=== PATIENT | female | born 1955 | race Caucasian/White ===

== ENCOUNTER 2017-05-18 12:07 | Emergency (ER) | payer BC ==
[2017-05-18 12:52] VITALS: BP 123/69
--- NOTE | 2017-05-18 13:18 | RAD ---
Indication: Dull pain RIGHT third proximal interphalangeal joint with associated swelling. No preceding injury. Comparison: June 23, 2010 radiographs Technique: AP, lateral, and oblique views RIGHT third finger. Report: Negative for fracture or malalignment. Negative for osteophytosis or joint space narrowing. No definitive osseous erosions. Suggestion of polyarticular mild periarticular osteopenia. Minimal periarticular soft tissue swelling at the level of the proximal interphalangeal joint. IMPRESSION: Consider potential early inflammatory arthropathy. Correlate with clinical assessment.
--- NOTE | 2017-05-18 13:44 | UC ---
Hand/Wrist HPI - HPI Summary HPI Summary: Patient presents with three-day history of right third finger pain with movement. No pain at rest. She is a very active healthy individual and noticed the discomfort after cross country skiing over the weekend. She does have a history of osteopenia but no arthritic symptoms in her hands. Denies any trauma. She has full range of motion in her finger but feels weak. 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 - History Of Current Complaint Chief Complaint: UCUpperExtremity Stated Complaint: FINGER PAIN Time Seen by Provider: 05/18/17 12:53 Hx Obtained From: Patient Onset/Duration: Gradual Onset, Lasting Days, Still Present Severity Initially: Moderate Severity Currently: None Pain Intensity: 0 - PAIN IS WITH MOVEMENT Pain Scale Used: 0-10 Numeric Character Of Pain: Sharp Aggravating Factor(s): Movement Alleviating Factor(s): Rest Associated Signs And Symptoms: Positive: Weakness. Negative: Swelling, Redness , Numbness/Tingling Related History: Dominant Hand Right - Allergies/Home Medications Allergies/Adverse Reactions: Allergies Allergy/AdvReac Type Severity Reaction Status Date / Time No Known Allergies Allergy Verified 05/18/17 12:44 PMH/Surg Hx/FS Hx/Imm Hx Previously Healthy: Yes - Surgical History Surgical History: None - Family History Known Family History: Positive: Cardiac Disease, Hypertension Family History: LUNG CANCER - Social History Alcohol Use: Daily Alcohol Amount: 1 drink/ day Substance Use Type: None Smoking Status (MU): Never Smoked Tobacco Review of Systems Constitutional: Negative Skin: Negative Respiratory: Negative Cardiovascular: Negative Gastrointestinal: Negative Musculoskeletal: Arthralgia All Other Systems Reviewed And Are Negative: Yes Physical Exam Triage Information Reviewed: Yes Appearance: Well-Appearing, No Pain Distress, Well-Nourished Vital Signs: Initial Vital Signs Temp 98.4 F 05/18/17 12:45 Pulse 58 05/18/17 12:45 Resp 16 05/18/17 12:45 BP 123/69 05/18/17 12:45 Pulse Ox 100 05/18/17 12:45 Vital Signs Reviewed: Yes Eyes: Positive: Conjunctiva Clear ENT: Positive: Hearing grossly normal Neck: Positive: Supple Respiratory: Positive: No respiratory distress, No accessory muscle use Cardiovascular: Positive: Pulses Normal Abdomen Description: Positive: Soft Musculoskeletal: Positive: ROM Intact, No Edema, Other: - RIGHT 3RD FINGER PAIN WITH ABDUCTION AND ADDUCTION. NOT TENDER TO PALPATION. Neurological: Positive: Alert Psychological: Positive: Age Appropriate Behavior Skin: Negative: rashes Diagnostics - Radiology RIGHT 3RD FINGER XRAY Xray Interpretation: Positive (See Comments) - Consider potential early inflammatory arthropathy Radiology Interpretation Completed By: Radiologist Hand/Wrist Course/Dx - Differential Dx/Diagnosis Provider Diagnoses: RIGHT 3RD FINGER PIP JOINT ARTHROPATHY Discharge - Sign-Out/Discharge Documenting (check all that apply): Discharge - Discharge Plan Condition: Stable Disposition: HOME Prescriptions: predniSONE TAB* [Deltasone TAB*] 40 mg PO DAILY #6 tab Patient Education Materials: Arthritis (ED) Referrals: Erik Dyer MD [Medical Doctor] - 1 Week Alia Lambert MD [Primary Care Provider] - If Needed Additional Instructions: Xray showed potential early inflammatory arthropathy in your right 3rd finger. Recommend resting the affected digit and wearing the splint at night and during the day as you are able. Take OTC antiinflammatories as needed. Prednisone may also be helpful for inflammatory process. Follow-up with ortho if you are not improving over the next week or so. IBUPROFEN MAX DOSE: 600MG (3 TABS) EVERY 6 HRS OR 800MG (4 TABS) EVERY 8 HRS OR NAPROXEN MAX DOSE: 440MG (2 TABS) EVERY 12 HRS - Billing Disposition and Condition Condition: STABLE Disposition: HOME
== END 2017-05-18 13:56 | disposition home or self-care (01) ==
LOC: UCEAST 12:07
DX: M19.041 Primary osteoarthritis, right hand (principal)
CPT/HCPCS: 73140; 99213; G0463

== ENCOUNTER 2017-12-31 13:05 | Emergency (ER) | payer BC ==
[2017-12-31 14:00] VITALS: BP 129/79
--- NOTE | 2017-12-31 14:15 | UC ---
Lower Extremity/Ankle HPI - HPI Summary HPI Summary: 62-year-old woman comes to clinic with a chief complaint of left calf pain. Pain started yesterday. No known injury. Pain was worse this morning. She went to an exercise class which made the pain worse. Rest makes it better. One of her exercise class traders let her know she was worried about the possibility of blood clot recommended she get an ultrasound. No chest pain no shortness of breath no prior history of blood clots. No rash no fevers. Patient feels well otherwise. - History of Current Complaint Chief Complaint: UCLowerExtremity Stated Complaint: PAIN IN CALF OF LEG Time Seen by Provider: 12/31/17 14:04 Pain Intensity: 8 - Allergies/Home Medications Allergies/Adverse Reactions: Allergies Allergy/AdvReac Type Severity Reaction Status Date / Time No Known Allergies Allergy Verified 12/31/17 14:00 Home Medications: Home Medications Biotin 1 mg PO DAILY 12/31/17 [History Confirmed 12/31/17] Calcium Carb/Vitamin D3/Vit K1 [Calcium + D Soft Chewable Tab] 1 tab PO DAILY [History Confirmed 12/31/17] PMH/Surg Hx/FS Hx/Imm Hx Previously Healthy: Yes - Surgical History Surgical History: Yes Surgery Procedure, Year, and Place: eye surgery at age 5 - Family History Known Family History: Positive: Cardiac Disease, Hypertension, Diabetes Family History: LUNG CANCER - Social History Alcohol Use: Daily Alcohol Amount: 1 drink/ day Substance Use Type: None Smoking Status (MU): Never Smoked Tobacco Review of Systems Constitutional: Negative Skin: Negative Eyes: Negative ENT: Negative Respiratory: Negative Cardiovascular: Negative Gastrointestinal: Negative Motor: Negative Neurovascular: Negative Musculoskeletal: Other: - SEE HPI Neurological: Negative Psychological: Negative Is Patient Immunocompromised?: No All Other Systems Reviewed And Are Negative: Yes Physical Exam Triage Information Reviewed: Yes Appearance: Well-Appearing, No Pain Distress, Well-Nourished Vital Signs: Initial Vital Signs Temp 98.0 F 12/31/17 13:49 Pulse 59 12/31/17 13:49 Resp 18 12/31/17 13:49 BP 129/79 12/31/17 13:49 Pulse Ox 99 12/31/17 13:49 Vital Signs Reviewed: Yes Eye Exam: Normal Eyes: Positive: Conjunctiva Clear Neck exam: Normal Neck: Positive: Supple Respiratory: Positive: No respiratory distress Musculoskeletal: Positive: Other: - Patient's left calf is tender to palpation. There is an area of firmness in the mid medial calf. Normal capillary refill normal pulses and no sensation deficits. No rash. Neurological: Positive: Alert, Muscle Tone Normal Psychological Exam: Normal Psychological: Positive: Age Appropriate Behavior Skin Exam: Normal Lower Extremity Course/Dx - Course Course Of Treatment: Order Information: VL LOWER EXT VEINS LEFT. Accession Number: [id number]. CPT: 49148. HISTORY: LEFT CALF PAIN/SWELLING. COMPARISONS: None relevant. TECHNIQUE: Multiple transverse and longitudinal ultrasound images were obtained of the. left lower extremity from the level of the common femoral vein inferiorly through to the. infrapopliteal veins using grayscale, color Doppler, and spectral Doppler imaging with. and without compression and with augmentation. Comparison images were obtained of the. contralateral common femoral vein. FINDINGS: VEINS: The venous system of the left lower extremity is compressible throughout its. course, with normal flow on color Doppler imaging and normal response to augmentation on. spectral Doppler imaging. SOFT TISSUES: Unremarkable. OTHER FINDINGS: None. IMPRESSION : NO LEFT LOWER EXTREMITY DEEP VEIN THROMBOSIS. . <Electronically signed by Herberth Zapata MD in [place]> 12/31/17 [id number]. I discussed the ultrasound report with the patient. The plan at this time is to rest the leg elevated it's use anti-inflammatories. I let her know that if the pain persisted or got worse the plan repeated get another ultrasound if he got worse or in one week's time. Otherwise follow-up with primary care doctor as needed return here if needed. - Differential Dx/Diagnosis Provider Diagnoses: LEFT CALF PAIN Discharge - Sign-Out/Discharge Documenting (check all that apply): Patient Departure All imaging exams completed and their final reports reviewed: Yes - Discharge Plan Condition: Stable Disposition: HOME Patient Education Materials: Leg Pain (ED) Referrals: Alia Lambert MD [Primary Care Provider] - Additional Instructions: FOLLOW UP WITH YOUR DOCTOR IF NOT COMPLETELY IMPROVED. GET RECHECKED FOR ANY WORSENING OF YOUR CONDITION; CHEST PAIN, SHORTNESS OF BREATH, PAIN OR QUESTIONS OR CONCERNS. - Billing Disposition and Condition Condition: STABLE Disposition: Home
== END 2017-12-31 15:38 | disposition home or self-care (01) ==
LOC: UCEAST 13:05
DX: M79.662 Pain in left lower leg (principal); M79.89 Other specified soft tissue disorders
CPT/HCPCS: 99211; G0463

== ENCOUNTER 2019-01-01 06:19 | Day surgery (SDC) | payer BC ==
[~2019-01-01 06:19] MED LIST: Buffered Lidocaine 1% SYRIN* 1 ML/SYRINGE INTRADERM ONE
[2019-01-01] MEDS ORDERED: Midazolam* 1 MG/ML 2 ML VIAL (2 MG) ONE (08:20)
[2019-01-01 09:20] VITALS: BP 107/61
--- NOTE | 2019-01-01 10:32 | OP ---
DATE OF OPERATION: 01/01/2019. DATE OF : 1955. SURGEON: Isacc Hendricks M.D. PREOPERATIVE DIAGNOSIS: Cataract right eye. POSTOPERATIVE DIAGNOSIS: Cataract right eye. OPERATIVE PROCEDURE: Extracapsular cataract extraction with intraocular lens implant right eye. PROCEDURE: The patient was brought to the operating room after being given 1/2% Alcaine with epineph rine drops in the preoperative area. The eye was prepped and draped in the usual sterile fashion. S terile drape and eyelid speculum were placed. Again, topical 1/2% Alcaine with epinephrine was given . A paracentesis incision was made at the 9 o'clock position with the No.75 blade. Clear cornea inc ision 2.2 x 2.2-mm was created at the 12 o'clock position starting at the anterior limbus using the 2 .2-mm keratome. The anterior chamber was irrigated with 0.4 mL of 1% non-preservative intracameral l idocaine and filled with DisCoVisc. A capsulorrhexis was completed using the cystotome and the Utrat a forceps. Hydrodissection was performed with balanced salt solution. The lens nucleus was removed w ith the Phacoemulsification handpiece without incident. Cortex was removed with the irrigation-aspir ation handpiece. The capsular bag was re-inflated using DisCoVisc and an [id number] 30 implant was inser dante with the shooter. All measurements confirmed with ORA. The irrigation-aspiration handpiece was used to remove all residual DisCoVisc. The eye was refilled with balanced salt solution and the woun d checked and found to be watertight. Topical Maxitrol drops were given. [id number]/[facility] #: [id number]
[2019-01-01] MEDS ORDERED: Phenylephrine OPHTH SOL 2.5%* 2 ML ONE (13:51)
[2019-01-01] MEDS ORDERED: Ketorolac 0.5% OPHTH (NF) 0.5 % 5 ML BTL ONE (13:51)
[2019-01-01] MEDS ORDERED: Lidocaine 1% MPF ** 5 ML VIAL ONE (13:51)
[2019-01-01] MEDS ORDERED: Povidone Iodine 5% OPTH* 30 ML BTL ONE (13:51)
[2019-01-01] MEDS ORDERED: acetaZOLAMIDE TAB* 250 MG ONE (13:51)
[2019-01-01] MEDS ORDERED: Lidocaine 2% w/ EPI 1:200,000* 20 ML SDV VIAL ONE (13:51)
[2019-01-01] MEDS ORDERED: Neomycin/Polymy/Dex OPTH.SUSP* MAXITROL 0.1% 5 ML ONE (13:51)
[2019-01-01] MEDS ORDERED: Proparacaine 0.5% OPHTH.SOL* 15 ML BTL ONE (13:51)
[2019-01-01] MEDS ORDERED: Cyclopentolate 1% OPTH.SOL* 2 ML BTL ONE (13:51)
== END 2019-01-01 09:14 | disposition home or self-care (01) ==
LOC: OREAST 06:19
PROVIDERS: ATTEND Specialist
DX: H25.11 Age-related nuclear cataract, right eye (principal); H52.209 Unspecified astigmatism, unspecified eye
CPT/HCPCS: A9270-GY; J2250; V2632

== ENCOUNTER 2019-01-08 09:20 | Day surgery (SDC) | payer BC ==
[2019-01-08] MEDS ORDERED: fentaNYL* 50 MCG/ML 2 ML VIAL (100 MCG VIAL) ONE (11:03)
[2019-01-08] MEDS ORDERED: Midazolam* 1 MG/ML 2 ML VIAL (2 MG) ONE (11:03)
[2019-01-08 12:22] VITALS: BP 110/60
--- NOTE | 2019-01-08 12:25 | OP ---
OPERATIVE NOTE: DATE OF OPERATION: 01/08/19 DATE OF : 57 SURGEON: Isacc Hendricks MD PREOPERATIVE DIAGNOSIS: Cataract, left eye. POSTOPERATIVE DIAGNOSIS: Cataract, left eye. OPERATIVE PROCEDURE: Extracapsular cataract extraction with intraocular lens implant, left eye. PROCEDURE: The patient was brought to the operating room after being given 1/2% Alcaine with epineph rine drops in the preoperative area. The eye was prepped and draped in the usual sterile fashion. S terile drape and eyelid speculum were placed. Again, topical 1/2% Alcaine with epinephrine was given . A paracentesis incision was made at the 3 o'clock position with the No.75 blade. Clear cornea inc ision 2.2 x 2.2-mm was created at the 6 o'clock position starting at the anterior limbus using the 2. 2-mm keratome. The anterior chamber was irrigated with 0.4 mL of 1% non-preservative intracameral li docaine and filled with DisCoVisc. A capsulorrhexis was completed using the cystotome and the Utrata forceps. Hydrodissection was performed with balanced salt solution. The lens nucleus was removed wi th the Phacoemulsification handpiece without incident. Cortex was removed with the irrigation-aspira tion handpiece. The capsular bag was re-inflated using DisCoVisc and an SN6AT4 29.5 implant was inse rted with the shooter. Oriented to the 64-degree meridian. All measurements were confirmed with ORA . The irrigation-aspiration handpiece was used to remove all residual DisCoVisc. The eye was refill ed with balanced salt solution and the wound checked and found to be watertight. Topical Maxitrol dr ops were given. [id number]/[facility] #: [id number]
--- NOTE | 2019-01-08 12:25 | OP ---
OPERATIVE NOTE: ADDENDUM: Just wanted to make sure it is an SN6AT4 29.5 oriented to the 64 degree meridian for the i mplant. [id number]/[facility] #: [id number]
[2019-01-08] MEDS ORDERED: Lidocaine 1% MPF ** 5 ML VIAL ONE (13:10)
[2019-01-08] MEDS ORDERED: Cyclopentolate 1% OPTH.SOL* 2 ML BTL ONE (13:10)
[2019-01-08] MEDS ORDERED: acetaZOLAMIDE TAB* 250 MG ONE (13:10)
[2019-01-08] MEDS ORDERED: Neomycin/Polymy/Dex OPTH.SUSP* MAXITROL 0.1% 5 ML ONE (13:11)
[2019-01-08] MEDS ORDERED: Ketorolac 0.5% OPHTH (NF) 0.5 % 5 ML BTL ONE (13:11)
[2019-01-08] MEDS ORDERED: Lidocaine 2% w/ EPI 1:200,000* 20 ML SDV VIAL ONE (13:11)
[2019-01-08] MEDS ORDERED: Povidone Iodine 5% OPTH* 30 ML BTL ONE (13:11)
[2019-01-08] MEDS ORDERED: Phenylephrine OPHTH SOL 2.5%* 2 ML ONE (13:11)
[2019-01-08] MEDS ORDERED: Proparacaine 0.5% OPHTH.SOL* 15 ML BTL ONE (13:11)
== END 2019-01-08 12:15 | disposition home or self-care (01) ==
LOC: OREAST 09:20
PROVIDERS: ATTEND Specialist
DX: H25.13 Age-related nuclear cataract, bilateral (principal); M85.80 Other specified disorders of bone density and structure, unspecified site; Z96.1 Presence of intraocular lens
CPT/HCPCS: A9270-GY; J2250; J3010; V2787